=== PATIENT | male | born 1965 | race Hispanic/Latino ===

== ENCOUNTER 2017-03-01 12:26 | Emergency (ER) | payer SELFPAY | END 2017-03-01 13:26 | LOC: BURERS 12:26 | DX: J11.1 Influenza due to unidentified influenza virus with other respiratory manifestations (principal); M10.9 Gout, unspecified; I10 Essential (primary) hypertension; Z79.899 Other long term (current) drug therapy | CPT/HCPCS: 87081; 87430; 99283 ==